=== PATIENT | female | born 1985 | race Caucasian/White ===

== ENCOUNTER 2016-09-03 10:37 | Inpatient (IN) | payer MEDICAID, OTHER ==
[~2016-09-03] VITALS: Ht 157.5 cm; Wt 95.4 kg
[2016-09-03 10:54] VITALS: Ht 157.5 cm; Wt 95.4 kg
[2016-09-03 10:55] VITALS: BP 118/65; PULSE 85
[2016-09-03] MEDS ORDERED: PRENAT PO (10:56)
[2016-09-03] MEDS ORDERED: OXYTOCIN 30 UNITS/LR 500 ML IV SCH ×2 (11:30)
[2016-09-03] MEDS ORDERED: METHYLERGONOVINE 0.2 MG INJ IM PRN (11:30)
[2016-09-03] MEDS ORDERED: OXYTOCIN 30 UNITS/LR 500 ML IV PRN (11:30)
[2016-09-03] MEDS ORDERED: LACTATED RINGER'S 1,000 ML IV PRN (11:30)
[2016-09-03] MEDS ORDERED: BUTORPHANOL 2 MG INJ IV PRN ×2 (11:30)
[2016-09-03] MEDS ORDERED: MISOPROSTOL 200 MCG TAB PR PRN (11:30)
[2016-09-03] MEDS ORDERED: CARBOPROST 250 MCG INJ IM PRN (11:30)
[2016-09-03] MEDS ORDERED: LIDOCAINE 1% (MPF) 30 ML INJ INJ PRN (11:30)
[2016-09-03 11:48] LABS: ADD SCAN DIFF NO
[2016-09-03 11:50] LABS: BASOPHILS % 0.3 % (0.0-2.0); EOSINOPHILS # 0.1 10^3/ul (0.0-0.5); EOSINOPHILS % 0.6 % (0.0-7.0); HEMATOCRIT 36.5 % (37.0-47.0); HEMOGLOBIN 12.3 g/dl (12.0-16.0); LYMPHOCYTES # 1.9 10^3/ul (0.8-2.9); LYMPHOCYTES % 18.4 % (15.0-51.0); MEAN CORPUSCULAR HEMOGLOBIN 30.3 pg (29.0-33.0); MEAN CORPUSCULAR HGB CONC 33.7 g/dl (32.0-37.0); MEAN CORPUSCULAR VOLUME 89.9 fl (82.0-101.0); MEAN PLATELET VOLUME 11.1 fl (7.4-10.4); MONOCYTE # 0.6 10^3/ul (0.3-0.9); MONOCYTES % 6.2 % (0.0-11.0); NEUTROPHIL # 7.5 10^3/ul (1.6-7.5); NEUTROPHILS % 73.3 % (39.0-77.0); PLATELET COUNT 223 10^3/UL (140-415); RED BLOOD COUNT 4.06 10^6/ul (4.20-5.40); RED CELL DISTRIBUTION WIDTH 14.8 % (11.5-14.5); WHITE BLOOD COUNT 10.2 10^3/ul (4.8-10.8)
[2016-09-03] MEDS: LACTATED RINGER'S 1,000 ML IV SCH ×2 (11:51→18:51)
[2016-09-03] MEDS ORDERED: AMPICILLIN 2 GM/NS (PMX) 100 ML IV ONE (12:00)
[2016-09-03 12:08] LABS: INR 0.91; PROTIME 12.3 Sec (12.2-14.2)
[2016-09-03 12:09] LABS: PARTIAL THROMBOPLASTIN TIME 27.3 Sec (25.0-35.0)
[2016-09-03] MEDS ORDERED: FENTAnyl 2MCG/ML-ROPIV 0.2% 100 ML ONE (16:51)
[2016-09-03] MEDS ORDERED: ONDANSETRON 4 MG INJ IV PRN (17:00)
[2016-09-03] MEDS ORDERED: NALOXONE (0.4 MG/ML) INJ IV PRN (17:00)
[2016-09-03] MEDS ORDERED: DIPHENHYDRAMINE 50 MG INJ IV PRN (17:00)
[2016-09-03] MEDS: AMPICILLIN 1 GM/NS (PMX) 50 ML IV SCH ×2 (17:20→20:40)
--- NOTE | 2016-09-03 19:33 | HP ---
Date/Time of Note Date/Time of Note DATE: 09/03/16 TIME: 19:31 OB - History Hx of Present Chief Complaint: contractions Estimated Due Date: Sep 11, 2016 : 2 Para: 1 Spontaneous : 0 Therapeutic : 0 Care: Good Care Ultrasounds: Normal mid trimester US Obstetrical Complications: None Medical Complications: None Past Family/Social History * Past Medical, Surgical, Family and Obstetric Histories reviewed from chart. GBS Status: Positive OB Admission Exam Vital Signs Vital Signs Vital Signs Date Time Temp Pulse Resp B/P Pulse Ox O2 Delivery O2 Flow Rate FiO2 09/03/16 10:55 97.4 85 118/65 Physical Exam HEENT: WNL Heart: Rhythm Normal Lungs: Clear Abdomen: WNL Extremities: Normal Cervical Dilatation: 4cm Effacement: 50% Station: -2 Membranes: Intact Heart Rate: 130's Accelerations: Accelerations Present Decelerations: No Decelerations Varibility: Moderate Last 72 hours Lab Results CBC & BMP 09/03/16 11:38 OB Assessment/Plan Reason for admission: active labor Plan: Expectant Management GABRIEL MATHUR MD Sep 03, 2016 19:33
[2016-09-04] MEDS: AMPICILLIN 1 GM/NS (PMX) 50 ML IV SCH ×5 (00:45→17:24)
[2016-09-04] MEDS: LACTATED RINGER'S 1,000 ML IV SCH ×3 (01:18→17:23)
[2016-09-04] MEDS: FENTAnyl 2MCG/ML-ROPIV 0.2% 100 ML BAG EPI SCH ×2 (02:40→13:32)
[2016-09-04] MEDS ORDERED: OXYTOCIN 30 UNITS/LR 500 ML IV SCH (15:00)
--- NOTE | 2016-09-04 20:51 | LDN ---
Date/Time of Note Date/Time of Note DATE: 09/04/16 TIME: 20:47 Delivery Summary Weeks of Gestation 39 weeks Placenta Delivered: Spontaneously Meconium: none Episiotomy: No Perineal laceration: 0 Anesthesia type: Epidural Estimated blood loss: 200 Sponge & Needle done & correct: Yes All needle counts correct: Yes Any foreign bodies felt in the: No Problems: Delivery Information Sex Sex: male Apgars 1 Minute: 9 5 Minute: 9 Suctioning Nose & mouth suctioned at kamilla: Yes Delee suction performed: No Umbilical Cord Umbilical cord with: 3 Vessels Cord presentations: no nuchal cord Cord Blood was obtained: Yes Mother & Baby Disposition Disposition Mom & Baby to Maternity; Good: Yes GABRIEL MATHUR MD Sep 04, 2016 20:51
[2016-09-04] MEDS ORDERED: IBUPROFEN 600 MG TAB PO PRN (22:00)
[2016-09-04] MEDS: LACTATED RINGER'S 1,000 ML IV* SCH (22:17)
[2016-09-04] MEDS ORDERED: CARBOPROST 250 MCG INJ IM PRN (22:30)
[2016-09-04] MEDS ORDERED: BENZOCAINE 20% 56 ML SPRAY TOP PRN (22:30)
[2016-09-04] MEDS ORDERED: ACETAMINOPHEN 325 MG TAB PO PRN (22:30)
[2016-09-04] MEDS ORDERED: OXYTOCIN 30 UNITS/LR 500 ML IV PRN (22:30)
[2016-09-04] MEDS ORDERED: METHYLERGONOVINE 0.2 MG INJ IM PRN (22:30)
[2016-09-04] MEDS ORDERED: WITCH HAZEL/GLYCERIN PAD PR PRN (22:30)
[2016-09-04] MEDS ORDERED: MISOPROSTOL 200 MCG TAB PR PRN (22:30)
[2016-09-04] MEDS ORDERED: DIBUCAINE 1% 30 GM OINT PR PRN (22:30)
[2016-09-04 22:45] VITALS: BP 116/58; PULSE 82; RESP 18
[2016-09-04] MEDS: ACETAMINOPHEN/CODEINE #3 TAB PO PRN (23:01)
[2016-09-05] MEDS: ACETAMINOPHEN/CODEINE #3 TAB PO PRN (03:34)
[2016-09-05 04:02] VITALS: BP 108/54; PULSE 71; RESP 18
[2016-09-05] MEDS: IBUPROFEN 600 MG TAB PO SCH ×5 (05:25→23:43)
[2016-09-05] MEDS: LACTATED RINGER'S 1,000 ML IV* SCH ×3 (06:17→22:17)
[2016-09-05 07:05] LABS: ADD SCAN DIFF NO
[2016-09-05 07:18] LABS: BASOPHILS % 0.2 % (0.0-2.0); EOSINOPHILS % 0.3 % (0.0-7.0); HEMOGLOBIN 11.4 g/dl (12.0-16.0); LYMPHOCYTES # 1.8 10^3/ul (0.8-2.9); MEAN CORPUSCULAR HEMOGLOBIN 29.8 pg (29.0-33.0); MEAN CORPUSCULAR HGB CONC 32.6 g/dl (32.0-37.0); MEAN CORPUSCULAR VOLUME 91.4 fl (82.0-101.0); MEAN PLATELET VOLUME 11.6 fl (7.4-10.4); MONOCYTE # 0.8 10^3/ul (0.3-0.9); MONOCYTES % 5.9 % (0.0-11.0); NEUTROPHIL # 10.3 10^3/ul (1.6-7.5); PLATELET COUNT 212 10^3/UL (140-415); RED BLOOD COUNT 3.83 10^6/ul (4.20-5.40); RED CELL DISTRIBUTION WIDTH 15.2 % (11.5-14.5)
[2016-09-05 08:00] VITALS: BP 112/60; PULSE 89; RESP 18
[2016-09-05] MEDS: SENNA/DOCUSATE NA (8.6MG/50MG) TAB PO SCH ×3 (10:34→21:00)
--- NOTE | 2016-09-05 15:33 | QN ---
Documentation Comment No complaint Afebrile VSS Fundus Firm Lochia Scant PPD #1 Stable Continue with present care. GABRIEL MATHUR MD Sep 05, 2016 15:33
[2016-09-05 16:00] VITALS: BP 123/61; PULSE 81; RESP 18
[2016-09-05 20:00] VITALS: BP 118/75; PULSE 74; RESP 18
[2016-09-06 03:36] VITALS: BP 124/62; PULSE 72; RESP 20
[2016-09-06] MEDS: IBUPROFEN 600 MG TAB PO SCH ×3 (05:23→18:00)
[2016-09-06] MEDS: LACTATED RINGER'S 1,000 ML IV* SCH (06:17)
[2016-09-06 08:00] VITALS: BP_SYST 114; BP_SYST 121; BP_DIAS 68; BP_DIAS 69; PULSE 74; PULSE 80; RESP 18; RESP 19
[2016-09-06] MEDS ORDERED: DIPHTH/TET/ACEL PERTUSS (ADULT) 0.5 ML VIAL IM* ONE (09:00)
[2016-09-06] MEDS: SENNA/DOCUSATE NA (8.6MG/50MG) TAB PO SCH (10:01)
--- NOTE | 2016-09-06 15:59 | DS ---
Date/Time of Note Date/Time of Note DATE: 09/06/16 TIME: 15:58 Obstetrical Discharge Record Final Diagnosis Final Diagnosis: Term delivered Vaginal Delivery Obstetrical Delivery: Spontaneous Condition on Discharge Physical Assessment Voiding: Yes Bowel Movement: Yes Breast: Soft, non-tender Fundus: Firm Calf Tenderness: No Patient Condition: Stable GABRIEL MATHUR MD Sep 06, 2016 15:59
[2016-09-06 16:00] VITALS: BP 119/62; PULSE 70; RESP 18
== END 2016-09-06 18:45 | disposition home or self-care (01) | DRG 775 ==
LOC: OBT 10:37 → L-D 10:38 → OBT 11:00 → L-D 11:13 → OBG 09-04 22:30 → PP1 09-05 20:35
PROVIDERS: ADMIT Obstetrics & Gynecology; ATTEND Obstetrics & Gynecology
PROC: 10E0XZZ Delivery of Products of Conception, External Approach (ICD-10-PCS; principal; 2016-09-04)
PROC: 3E00X4Z Introduction of Serum, Toxoid and Vaccine into Skin and Mucous Membranes, External Approach (ICD-10-PCS; 2016-09-06)
DX: O80 Encounter for full-term uncomplicated delivery (principal); Z23 Encounter for immunization; Z3A.39 39 weeks gestation of pregnancy; Z37.0 Single live birth
CPT/HCPCS: 62319; 85025; 85610; 85730; 86592; 86900; 86901; 87340; 90715; G0463; J0290; J2590; J3010; J7120

== ENCOUNTER 2016-09-25 13:06 | Emergency (ER) | payer OTHER ==
[~2016-09-25] VITALS: Ht 170.2 cm; Wt 89.0 kg
[~2016-09-25 13:06] MED LIST: PRENAT PO
[2016-09-25 13:09] VITALS: Ht 170.2 cm; Wt 89.0 kg
[2016-09-25] MEDS ORDERED: ONDANSETRON (ODT) 4 MG TAB ODT STA (14:00)
[2016-09-25 14:25] LABS: ADD SCAN DIFF NO
[2016-09-25 14:26] LABS: BASOPHIL # 0.1 10^3/ul (0.0-0.1); BASOPHILS % 0.4 % (0.0-2.0); EOSINOPHILS # 0.1 10^3/ul (0.0-0.5); EOSINOPHILS % 0.4 % (0.0-7.0); HEMATOCRIT 42.3 % (37.0-47.0); HEMOGLOBIN 14.1 g/dl (12.0-16.0); LYMPHOCYTES % 15.1 % (15.0-51.0); MEAN CORPUSCULAR HEMOGLOBIN 30.1 pg (29.0-33.0); MEAN CORPUSCULAR HGB CONC 33.3 g/dl (32.0-37.0); MEAN CORPUSCULAR VOLUME 90.2 fl (82.0-101.0); MEAN PLATELET VOLUME 11.8 fl (7.4-10.4); MONOCYTE # 0.6 10^3/ul (0.3-0.9); MONOCYTES % 4.9 % (0.0-11.0); NEUTROPHIL # 10.2 10^3/ul (1.6-7.5); NEUTROPHILS % 78.8 % (39.0-77.0); PLATELET COUNT 238 10^3/UL (140-415); RED BLOOD COUNT 4.69 10^6/ul (4.20-5.40); RED CELL DISTRIBUTION WIDTH 13.9 % (11.5-14.5)
[2016-09-25 14:39] LABS: ADD UMIC YES; UR ASCORBIC ACID NEGATIVE (NEGATIVE); UR BACTERIA FEW /HPF (NONE SEEN); UR BILIRUBIN (Dip) NEGATIVE (NEGATIVE); UR BLOOD (Dip) 3+ mg/dL (NEGATIVE); UR CLARITY CLOUDY (CLEAR); UR COLOR YELLOW (YELLOW); UR GLUCOSE (Dip) NEGATIVE (NEGATIVE); UR KETONES (Dip) NEGATIVE (NEGATIVE); UR LEUKOCYTE ESTERASE (Dip) 3+ Leu/ul (NEGATIVE); UR MUCUS FEW /HPF (NONE SEEN); UR NITRITE (Dip) NEGATIVE (NEGATIVE); UR NONSQUAMOUS EPITHELIAL CELL 4 /HPF (NONE SEEN); UR RBC > 182 /HPF (0-5); UR SPECIFIC GRAVITY (Dip) 1.025 (1.003-1.030); UR SQUAMOUS EPITHELIAL CELL FEW /HPF (FEW); UR TOTAL PROTEIN (Dip) 2+ mg/dl (NEGATIVE); UR UROBILINOGEN (Dip) NEGATIVE (NEGATIVE); UR WBC CLUMPS MANY /HPF (NONE SEEN)
[2016-09-25 14:46] LABS: ALBUMIN 4.7 g/dl (3.3-4.9); ALBUMIN/GLOBULIN RATIO 1.46; BILIRUBIN,INDIRECT 0.2 mg/dl (0-1.1); BILIRUBIN,TOTAL 0.2 mg/dl (0.2-1.3); CALCIUM 9.7 mg/dl (8.4-10.2); CREATININE 0.83 mg/dl (0.44-1.00); POTASSIUM 4.1 mmol/L (3.5-5.1); TOTAL PROTEIN 7.9 g/dl (6.1-8.1)
--- NOTE | 2016-09-25 15:17 | RADRPT ---
PROCEDURE: US Pelvis. CLINICAL INDICATION: Left pelvic pain. TECHNIQUE: The pelvis was evaluated with transabdominal and transvaginal sonography in the axial a nd sagittal planes. COMPARISON: No prior study is available for comparison. FINDINGS: Uterus: 10.3 x 5.7 x 7.1 cm. Endometrium: 5.6 mm. A small amount of fluid is present in the endometrial canal Right ovary: 3.2 x 2.2 x 2.1 cm. Left ovary: 2.9 x 1.0 x 2.0 cm. Uterine masses: None. Ovarian masses: None. Color Doppler and pulsed Doppler sonography demonstrate normal flow to the ova adithya. Other pelvic masses: None. Free fluid: None. IMPRESSION: 1. Small amount of fluid in the endometrial canal. Benign. Follow-up advised. 2. Otherwise normal pelvic ultrasound. RPTAT: QQ .Maximo Boone MD, MD Date Time Electronically viewed and signed by .Maximo Boone MD, on 09/25/2016 15:17 .R/
[2016-09-25] MEDS ORDERED: ACETAMINOPHEN 500 MG TAB PO STA (15:56)
[2016-09-25] MEDS ORDERED: CEPH-443 PO (16:10)
--- NOTE | 2016-09-25 16:29 | ERD ---
ER Documentation Chief Complaint Date/Time DATE: 09/25/16 TIME: 16:26 Chief Complaint intermittent left side abd pain with nausea x this am HPI 30-year-old female patient who is a presents to the ED with left-sided upper abdominal pain and feels like it travels to her "vagina". States that this happened yesterday. Reports that she just vaginally delivered her baby [address] Bruce. States that she has been having consistent vaginal bleeding and has been changing 3-4 pads per day. Patient does describe this pain as a burning sensation. Denies any weakness, fatigue, dizziness, nausea, vomiting, diarrhea, constipation, vaginal discharge, dysuria, urgency, frequency. ROS All systems reviewed and are negative except as per history of present illness. Medications Home Meds Active Scripts Cephalexin* (Keflex*) 500 Mg Capsule, 500 MG PO QID for 7 Days, CAP Prov:MARIANNE WARD PA-C 09/25/16 Reported Medications Multivit/Min/Fol Ac/Iron/Pren* ( S*) 1 Tab Tab, 1 TAB PO DAILY, TAB 09/03/16 Allergies Allergies: Coded Allergies: No Known Allergy (Unverified , 09/25/16) PMhx/Soc Medical and Surgical Hx: pt denies Medical Hx, pt denies Surgical Hx History of Surgery: No Anesthesia Reaction: No Hx Neurological Disorder: No Hx Respiratory Disorders: No Hx Cardiac Disorders: No Hx Psychiatric Problems: No Hx Alcohol Use: No Hx Substance Use: No Hx Tobacco Use: No Smoking Status: Never smoker Physical Exam Vitals Vital Signs Date Time Temp Pulse Resp B/P Pulse Ox O2 Delivery O2 Flow Rate FiO2 09/25/16 13:09 97.4 86 18 130/81 98 Physical Exam Const: [id number], well-nourished. In no acute distress. Head: Atraumatic, normocephalic Eyes: Normal Conjunctiva without injection. No purulent discharge. ENT: Normal external ear, nose. Moist oropharynx without tonsillar exudates. Non -erythematous pharynx. Uvula midline. No drooling. No trismus. Neck: No cervical midline tenderness. Full range of motion. No meningismus. No cervical lymphadenopathy. No JVD. Resp: Clear to auscultation bilaterally. No wheezing, rhonchi, rales, or crackles. No accessory muscle use. No retractions. Cardio: Regular rate and rhythm. No murmurs, rubs or gallops. Abd: Soft, left upper quadrant tenderness, non distended. Normal bowel sounds. No palpable masses. No rebound tenderness. No guarding. Negative McBurney's point. Negative psoas sign. Negative obturator sign. Skin: No petechiae or rashes Back: No midline tenderness. No CVA tenderness. Ext: No cyanosis, or edema. Neur: Awake and alert. Normal gait. Normal coordination. Psych: Normal Mood and Affect Results 24 hrs Laboratory Tests Test 09/25/16 14:19 White Blood Count 13.010^3/ul Red Blood Count 4.6910^6/ul Hemoglobin 14.1g/dl Hematocrit 42.3% Mean Corpuscular Volume 90.2fl Mean Corpuscular Hemoglobin 30.1pg Mean Corpuscular Hemoglobin Concent 33.3g/dl Red Cell Distribution Width 13.9% Platelet Count 71031^3/UL Mean Platelet Volume 11.8fl Neutrophils % 78.8% Lymphocytes % 15.1% Monocytes % 4.9% Eosinophils % 0.4% Basophils % 0.4% Nucleated Red Blood Cells % 0.0/100WBC Neutrophils # 10.210^3/ul Lymphocytes # 2.010^3/ul Monocytes # 0.610^3/ul Eosinophils # 0.110^3/ul Basophils # 0.110^3/ul Nucleated Red Blood Cells # 0.010^3/ul Urine Color YELLOW Urine Clarity CLOUDY Urine pH 5.0 Urine Specific [place] 1.025 Urine Ketones NEGATIVEmg/dL Urine Nitrite NEGATIVEmg/dL Urine Bilirubin NEGATIVEmg/dL Urine Urobilinogen NEGATIVEmg/dL Urine Leukocyte Esterase 3+Jordy/ul Urine Microscopic RBC > 182/HPF Urine Microscopic WBC > 182/HPF Urine Squamous Epithelial Cells FEW/HPF Urine Bacteria FEW/HPF Urine Mucus FEW/HPF Urine Hemoglobin 3+mg/dL Urine Glucose NEGATIVEmg/dL Urine Total Protein 2+mg/dl Sodium Level 144mmol/L Potassium Level 4.1mmol/L Chloride Level 104mmol/L Carbon Dioxide Level 23mmol/L Anion Gap 21 Blood Urea Nitrogen 14mg/dl Creatinine 0.83mg/dl Glucose Level 109mg/dl Calcium Level 9.7mg/dl Total Bilirubin 0.2mg/dl Direct Bilirubin 0.00mg/dl Indirect Bilirubin 0.2mg/dl Aspartate Amino Transf (AST/SGOT) 48IU/L Alanine Aminotransferase (ALT/SGPT) 91IU/L Alkaline Phosphatase 140IU/L Total Protein 7.9g/dl Albumin 4.7g/dl Globulin 3.20g/dl Albumin/Globulin Ratio 1.46 Lipase 103U/L Current Medications Medications (Trade) Dose Ordered Sig/Nicole Route PRN Reason Start Time Stop Time Status Last Admin Dose Admin Ondansetron HCl (Zofran Odt) 4 mg ONCE STAT ODT 09/25/16 14:00 09/25/16 14:02 DC 09/25/16 14:25 Acetaminophen (Tylenol Tab) 500 mg ONCE STAT PO 09/25/16 15:56 09/25/16 15:57 DC 09/25/16 16:13 Procedures/MDM 30-year-old female patient with no significant past medical history presents to the ED complaining of left sided upper abdominal pain. Patient is afebrile and nontoxic-appearing. Patient has normal vital signs. Patient was further worked up with CBC, CMP, lipase, UA, urine , pelvic ultrasound. Patient 's pain and symptoms have improved after treatment with Tylenol. CBC: No leukocytosis. No e/o of systemic infection. No e/o anemia. CMP: No e/o severe acidosis, alkalosis, renal failure, diabetic ketoacidosis, liver disease Lipase within normal limits. Urine: No leukocyte esterase, no nitrites, no hematuria. Urine : Negative PROCEDURE: US Pelvis. CLINICAL INDICATION: Left pelvic pain. TECHNIQUE: The pelvis was evaluated with transabdominal and transvaginal sonography in the axial and sagittal planes. COMPARISON: No prior study is available for comparison. FINDINGS: Uterus: 10.3 x 5.7 x 7.1 cm. Endometrium: 5.6 mm. A small amount of fluid is present in the endometrial canal Right ovary: 3.2 x 2.2 x 2.1 cm. Left ovary: 2.9 x 1.0 x 2.0 cm. Uterine masses: None. Ovarian masses: None. Color Doppler and pulsed Doppler sonography demonstrate normal flow to the ovaries. Other pelvic masses: None. Free fluid: None. IMPRESSION: 1. Small amount of fluid in the endometrial canal. Benign. Follow-up advised. 2. Otherwise normal pelvic ultrasound. Patient has 3+ leukocyte esterase, 182 white blood cells, 3+ hematuria. Patient likely has urinary tract infection. Patient does not have hypertension. Slight liver enzymes are elevated however there is low suspicion for any HELLP, preeclampsia, gastritis, GERD, peptic ulcer disease, cholecystitis, choledocholithiasis, cholangitis, pancreatitis, appendicitis, bowel obstruction, ileus, volvulus, nephrolithiasis, pyelonephritis, hepatitis, perforated viscus, diverticulitis, abdominal hernia, acute abdomen, mesenteric ischemia or other emergent conditions. This case was discussed with my supervising physician Dr. Maddox who agreed with the management and discharge plan. Discharge medications: Keflex Follow up with primary care physician in 1-2 days for referral to palliative care physician. Instructed patient to return to the ED sooner for any worsening symptoms. Patient's questions were answered. Patient understood and agreed with discharge plan. Patient discharged stable. Departure Diagnosis: Primary Impression: Urinary tract infection Urinary tract infection type: site unspecified Hematuria presence: without hematuria Qualified Code: N39.0 - Urinary tract infection without hematuria, site unspecified Condition: Stable Patient Instructions: Abdominal Pain, Understanding Urinary Tract Infections ( UTIs) Referrals: [facility] YOU HAVE RECEIVED A MEDICAL SCREENING EXAM AND THE RESULTS INDICATE THAT YOU DO NOT HAVE A CONDITION THAT REQUIRES URGENT TREATMENT IN THE EMERGENCY DEPARTMENT. FURTHER EVALUATION AND TREATMENT OF YOUR CONDITION CAN WAIT UNTIL YOU ARE SEEN IN YOUR DOCTORS OFFICE WITHIN THE NEXT 1-2 DAYS. IT IS YOUR RESPONSIBILITY TO MAKE AN APPOINTMENT FOR FOLOW-UP CARE. IF YOU HAVE A PRIMARY DOCTOR --you should call your primary doctor and schedule an appointment IF YOU DO NOT HAVE A PRIMARY DOCTOR YOU CAN CALL OUR PHYSICIAN REFERRAL HOTLINE AT IF YOU CAN NOT AFFORD TO SEE A PHYSICIAN YOU CAN CHOSE FROM THE FOLLOWING [facility] [address] [facility] [address] [facility] [facility] [address] [facility] [address] [facility]. [facility] [address]. [facility]. [address] [facility]. [facility] YOU HAVE RECEIVED A MEDICAL SCREENING EXAM AND THE RESULTS INDICATE THAT YOU DO NOT HAVE A CONDITION THAT REQUIRES URGENT TREATMENT IN THE EMERGENCY DEPARTMENT. FURTHER EVALUATION AND TREATMENT OF YOUR CONDITION CAN WAIT UNTIL YOU ARE SEEN IN YOUR DOCTORS OFFICE WITHIN THE NEXT 1-2 DAYS. IT IS YOUR RESPONSIBILITY TO MAKE AN APPOINTMENT FOR FOLOW-UP CARE. IF YOU HAVE A PRIMARY DOCTOR --you should call your primary doctor and schedule and appointment IF YOU DO NOT HAVE A PRIMARY DOCTOR YOU CAN CALL OUR PHYSICIAN REFERRAL HOTLINE AT . IF YOU CAN NOT AFFORD TO SEE A PHYSICIAN YOU CAN CHOSE FROM THE FOLLOWING [facility] INSTITUTIONS: [facility] [address] [place] [address] [facility] [address] [place], [place] [id number] [place] [address] [address] [place] [address] [facility] URGENT [facility]/SPECIALTIES Additional Instructions: Call your primary care doctor for an appointment during the next 2 days for further evaluation and treatment.See the doctor sooner or return here if your condition worsens before your appointment time. MARIANNE WARD PA-C Sep 25, 2016 16:29 MARIANNE WARD PA-C Sep 25, 2016 16:29
== END 2016-09-25 16:21 | disposition home or self-care (01) ==
LOC: FTE 13:06
DX: N39.0 Urinary tract infection, site not specified (principal); R10.2 Pelvic and perineal pain
CPT/HCPCS: 76830; 76856; 80053; 81001; 83690; 85025; Z7610; 36415

== ENCOUNTER 2017-11-05 20:50 | Inpatient (IN) | END 2017-11-07 19:00 | disposition home or self-care (01) | DRG 775 ==